=== PATIENT | female | born 1940 | race Caucasian/White ===

== ENCOUNTER 2022-06-21 15:28 | Inpatient (IN) | payer MEDICARE, OTHER ==
[~2022-06-21] VITALS: Ht 162.6 cm; Wt 67.8 kg
[2022-06-22] MEDS ORDERED: ELIQUIS5 MG PO (15:10)
[2022-06-22] MEDS ORDERED: PRINIVIL20 MG PO (15:10)
[2022-06-22] MEDS ORDERED: NEURONTIN300 MG PO (15:10)
[2022-06-22] MEDS ORDERED: NORCO 5-325 TA1 EACH PO (15:11)
[2022-06-22] MEDS ORDERED: BIOTIN1 M1 PO (15:13)
[2022-06-22] MEDS ORDERED: CARDIZEM CD240 M1 PO (15:13)
[2022-06-22] MEDS ORDERED: VITAMIN D350 MC3 PO (15:14)
[2022-06-22] MEDS ORDERED: DAILY VALUE1 EACH PO (15:15)
[2022-06-23 04:53] LABS: BASOPHIL 0.5 % (0-2); EOSINOPHIL 3.7 % (0-7); HCT 29.2 % (37.0-47.0); HGB 9.2 g/dl (12.5-16.0); LYMPHOCYTE 19.9 % (15-48); MCH 30.4 pg (25.0-31.0); MCHC 31.5 g/dL (32.0-36.0); MCV 96.4 fL (78.0-100.0); MONOCYTE 10.2 % (0-12); NEUTROPHIL 64.9 % (41-80); NRBC 0; PLT 197 K/uL (150-400); RBC 3.03 M/uL (4.20-5.40); RDW 13.5 % (11.5-14.0); WBC 9.9 K/uL (4.0-10.5)
[2022-06-23 05:38] LABS: BUN/CREAT RATIO (CALC) 17.7 RATIO; CREATININE 0.79 mg/dL (0.51-0.95); POTASSIUM 3.5 mmol/L (3.5-5.1)
--- NOTE | 2022-06-23 14:22 | NUR ---
06/23/22 Discussed offering bereavement support group. Patient reports to be coping well. Finds great support in family and neighbors.
--- NOTE | 2022-06-26 09:57 | NUR ---
RD visiting for breakfast rounds; patient was educated on menu and personal choices to improve nutritional intake and patient satisfaction. will follow with full assessment.
--- NOTE | 2022-06-27 06:14 | NUR ---
PATIENT RECEIVED SECOND COVID SWAB
[2022-06-28] MEDS ORDERED: FEOSOL325 MG PO (12:23)
== END 2022-06-29 12:47 | disposition home or self-care (01) | DRG 560 ==
LOC: FSNU 15:28
PROVIDERS: Allergy & Immunology Allergy; ADMIT Internal Medicine
DX: Z47.1 Aftercare following joint replacement surgery (principal); I48.20 Chronic atrial fibrillation, unspecified; G89.18 Other acute postprocedural pain; Z66 Do not resuscitate; I10 Essential (primary) hypertension; D64.9 Anemia, unspecified; J44.9 Chronic obstructive pulmonary disease, unspecified; K21.9 Gastro-esophageal reflux disease without esophagitis; E78.5 Hyperlipidemia, unspecified; Z96.651 Presence of right artificial knee joint; S72.002D Fracture of unspecified part of neck of left femur, subsequent encounter for closed fracture with routine healing; W19.XXXD Unspecified fall, subsequent encounter; Y92.009 Unspecified place in unspecified non-institutional (private) residence as the place of occurrence of the external cause; Z90.49 Acquired absence of other specified parts of digestive tract; Z98.1 Arthrodesis status; Z90.722 Acquired absence of ovaries, bilateral; Z79.899 Other long term (current) drug therapy; Z87.891 Personal history of nicotine dependence; Z79.01 Long term (current) use of anticoagulants; Z82.49 Family history of ischemic heart disease and other diseases of the circulatory system; Z83.3 Family history of diabetes mellitus
CPT/HCPCS: 36415; 80048; 85025; 97110; 97116; 97162; 97166; 97530; 97530-GP; 97535; U0002